=== PATIENT | male | born 1975 | race Caucasian/White ===

== ENCOUNTER 2018-08-19 12:40 | Outpatient (CLI) | payer OTHER ==
[~2018-08-19 12:40] MED LIST: CATAFLAM50 MG; FLEXERIL10 MG PO; FLONASE16 GM NASAL; PROTONIX40 MG PO; VOLTAREM 50 MG PO; ZYRTEC10 MG PO
== END 2018-08-19 12:42 | disposition home or self-care (01) ==
LOC: RAD 12:40
DX: M54.5 Low back pain (principal); M54.6 Pain in thoracic spine

== ENCOUNTER → 2018-09-17 | Outpatient (CLI) | payer OTHER ==
[~2018-09-17] MED LIST changes: +CYCLOBENZAPRINE10 MG PO; +DICLOFENAC SODI50 MG PO
== END | disposition home or self-care (01) ==
LOC: RAD 09:53
DX: M79.671 Pain in right foot (principal)

== ENCOUNTER 2019-01-14 12:51 | Outpatient (CLI) | payer OTHER | END 2019-01-14 14:40 | disposition home or self-care (01) | LOC: SONOGRAMA 12:51 | DX: M72.2 Plantar fascial fibromatosis (principal) ==

== ENCOUNTER 2020-04-01 10:00 | Outpatient (CLI) | payer OTHER | END 2020-04-02 15:48 | disposition home or self-care (01) | LOC: PPH VACUNA 10:00 | DX: Z23 Encounter for immunization (principal) ==